=== PATIENT | male | born 1995 | race Two or more races ===

== ENCOUNTER 2016-12-12 06:19 | Inpatient (IN) | payer OTHER ==
[~2016-12-12] VITALS: Ht 185.4 cm; Wt 90.5 kg
[2016-12-12 09:45] VITALS: BP 126/79; PULSE 86; RESP 18; Ht 185.4 cm; Wt 90.5 kg
[2016-12-12] MEDS ORDERED: D5W-0.45 NACL + KCL 20 MEQ 1,000 ML IV SCH (12:05)
[2016-12-12] MEDS ORDERED: morphine 2 MG INJ IV PRN (12:30)
[2016-12-12] MEDS ORDERED: ONDANSETRON 4 MG INJ IV PRN (12:30)
[2016-12-12] MEDS ORDERED: PANTOPRAZOLE 40 MG INJ IV SCH (13:00)
--- NOTE | 2016-12-12 14:41 | HP ---
DATE OF ADMISSION: 12/12/2016 CHIEF COMPLAINT: Abdominal pain. HISTORY OF PRESENT ILLNESS: The patient is a 21-year-old male who denies having any past medical hi story. The patient presented for evaluation of right lower quadrant pain. Patient stated that it h as been intermittent mostly in the right lower quadrant. The patient stated that he has pain over t he last couple of months and it got worse in the last couple of days and was more constant. The pat ient denies any nausea, vomiting, diarrhea. Denies fevers, chills. The patient was seen in [facility] Emergency Room and underwent a CT of abdomen and pelvis which reveal morphology of the distal ap pendix was suspicious for developing early focal distal appendicitis, no diverticulitis or mechanica l small-bowel obstruction. The patient was transferred to [facility] for insuranc e reasons. PAST MEDICAL HISTORY: Negative for any acute conditions. PAST SURGICAL HISTORY: Patient denies having any surgeries in the past. FAMILY HISTORY: Noncontributory. SOCIAL HISTORY: Patient lives with his family. The patient is originally from [place]. Speaks Poyntelle c and some Yoruba. The patient denies any tobacco use, denies any alcohol use, denies any illicit drug use. ALLERGIES: The patient stated that he had some ALLERGY TO MEDICATION, however, does not remember th e exact name of medication. HOME MEDICATIONS: No active scripts noted. REVIEW OF SYSTEMS: A 12-point review of systems negative unless mentioned in the HPI. PHYSICAL ASSESSMENT: GENERAL: Well-developed, well-nourished male in no acute distress. VITAL SIGNS: Temperature is 98.1, pulse is 94, blood pressure 123/73, respiratory rate 18, oxygen s aturation 100% on room air. HEENT: Head is atraumatic, normocephalic. Pupils equal, round, reactive to light and accommodation . Oral mucosa is pink and moist. NECK: Supple, no cervical lymphadenopathy, no thyromegaly. CHEST: Clear bilaterally. There is no rhonchi, wheezes, rales noted. CARDIOVASCULAR: Normal S1, S2. No murmurs, clicks, rubs noted. ABDOMEN: Round, soft, nondistended. Right lower quadrant tenderness. Bowel sounds present. There is no guarding, no rebound tenderness. EXTREMITIES: No edema, clubbing, cyanosis. Pulses equal bilaterally 2+. SKIN: There is no rash, petechiae noted. NEUROLOGIC: Patient is awake, alert and oriented x4. No focal deficits noted. Motor strength 5/5 in all extremities. LABORATORY DATA: On admission, CBC: White blood cells 10.6, hemoglobin 16.8, hematocrit 48.3, plat elets 199. Urinalysis is negative for leukocyte esterase, negative for nitrites. BMP: Sodium is 1 41, potassium 4.0, chloride 100, carbon dioxide 27, BUN is 13, creatinine 0.9, AST 17, ALT 19, alkal ine phosphatase 73, lipase is 21. Amylase is 131. ASSESSMENT AND PLAN: 1. Acute appendicitis. Patient is n.p.o. start IV fluids and antibiotics. I will ask Dr. Keith to see patient in general surgery consultation. 2. Protonix for peptic ulcer disease prophylaxis and sequential compression device for deep venous thrombosis prophylaxis. 3. Continue morphine p.r.n. for pain and Zofran p.r.n. for nausea. Further recommendations based on clinical course. Plan of care discussed with Dr. Vick. Dictated By: GILBERTO VELASQUEZ TECHNICAL TRANSLATOR for EDEL VICK MD SR/NTS Conf#: [id number] DID#: [id number]
[2016-12-12 20:20] VITALS: BP 111/59; RESP 16
[2016-12-12 21:41] LABS: ADD UMIC YES; URINE BILIRUBIN (Dip) NEGATIVE (NEGATIVE); URINE BLOOD (Dip) 2+ (NEGATIVE); URINE COLOR LT. YELLOW (YELLOW); URINE GLUCOSE (Dip) NEGATIVE (NEGATIVE); URINE KETONES (Dip) NEGATIVE (NEGATIVE); URINE LEUKOCYTE ESTERASE (Dip) NEGATIVE (NEGATIVE); URINE NITRITE (Dip) NEGATIVE (NEGATIVE); URINE TOTAL PROTEIN (Dip) NEGATIVE (NEGATIVE); URINE UROBILINOGEN (Dip) 0.2 E.U./dL (0.1-1.0)
[2016-12-12 21:50] LABS: SQUAMOUS EPITHELIAL CELL,UR RARE
--- NOTE | 2016-12-12 23:05 | CONS ---
DATE OF ADMISSION: 12/12/2016 DATE OF CONSULTATION: 12/12/2016 TYPE OF CONSULTATION: Surgical. REQUESTING PHYSICIAN: Dr. Wilhelm's service from Dr. Keith and I am covering Dr. Keith. HISTORY OF PRESENT ILLNESS: This is a 21-year-old gentleman who was transferred from [facility] because of the insurance reasons after he referred to the emergency room complaining of right lower quadrant abdominal pain on and off for about 2 to 3 months. They evaluated him over there. T he CBC was normal. They got suspicious for appendicitis. They got a CT scan of the abdomen and pel vis and the report of CT scans is limited by motion. Morphology of the distal appendix suspicious f or developing, early focal distal appendicitis. No diverticulitis or mechanical small-bowel obstruc tion seen. In any case, the patient was transferred here. PAST MEDICAL HISTORY: Negative for any acute conditions or any surgeries. FAMILY HISTORY: Noncontributory. SOCIAL HISTORY: The patient lives with his family. The patient originally from [place]. 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 Denies alcohol or illicit drug abuse. ALLERGIES: THE PATIENT THINKS HE IS ALLERGIC TO SOME KIND OF MEDICATION, BUT HE DOES NOT KNOW THE N ARNALDO. REVIEW OF SYSTEMS: Unremarkable. PHYSICAL EXAMINATION: GENERAL: The patient is alert, awake, oriented x3, lying down in the bed in no acute distress. VITAL SIGNS: Today afternoon, temperature 98.2, heart rate 86 and regular, respirations 18, blood p ressure 126/79, saturation 99% on room air. LABORATORY DATA: No lab result was done here, but as was mentioned transferred from [facility] WBC was 10,800 with neutrophils 56%. Important is that the urinalysis has some abnormality, no nitrates or ketones or anything else, except that red blood cell is 25 to 50 per high power field. HEAD AND NECK: Within normal limits. CHEST: Symmetrical expansion of hemithoraces. LUNGS: Clear to auscultation. HEART: Regular rhythm. No murmur. ABDOMEN: Not distended. Bowel sounds normal. Abdomen is soft. There is no actual tenderness, may be question plus/minus on deep palpation, maybe slightly tender below the umbilicus to the right saniya e. There is no evidence of inguinal or femoral hernia. EXTREMITIES: Lower extremity negative. LABORATORY DATA: As was mentioned, labs on admission from the other hospital WBC 10,600; hemoglobin 16.8, hematocrit 48.3, platelets 199. Sodium 141, potassium 4, chloride 100, carbon dioxide 27, BU N 13, creatinine 0.9. AST, ALT, alkaline phosphatase within normal limits. Urinalysis: No leukocy tosis, negative for leukocyte esterase, negative nitrites, negative WBC, but positive for RBCs 25 to 50. I reviewed the copy of the CT scan on the CD with Dr. Narayan Cruz, our radiologist, and he did not believe that there is ____ appendicitis. IMPRESSION: 1. Microscopic hematuria. 2. On and off episodes of right lower quadrant abdominal pain for a short time during the past coup le of months, question of possible ureteral or kidney stone. 3. At this time, per absence of leukocytosis, absence of fever, patient has a good appetite and neg ative CT scan of the abdomen per our radiologist, Dr. Narayan Cruz. Therefore, the patient does not have acute appendicitis. PLAN: I am going to ask Dr. Riley, the urologist, to evaluate the patient for the hematuria. Th at could explain the problem of right lower quadrant abdominal pain that the patient has been experi encing in the past. We will continue following the patient. Dictated By: VICKY ESPINAL MD PS/NTS Conf#: [id number] DID#: [id number] CC: EDEL WILHELM MD; HEATHER ORONA MD;*EndCC*
--- NOTE | 2016-12-13 01:27 | CONS ---
DATE OF ADMISSION: 12/12/2016 DATE OF CONSULTATION: 12/12/2016 REQUESTING PHYSICIAN: Dr. Vick HISTORY OF PRESENT ILLNESS: The patient is a 21-year-old [place] male who presented to the emergen cy room at [facility]. In fact, he took his father over there because his father was havin g infection in his jaw, and while he was there, he did request to be seen himself as well because he has been having pain in the right lower quadrant on and off for the past couple of months. The pat ient described the pain as sometimes like pulsating and no associated nausea or vomiting, no urinary symptoms. No urgency, frequency and no dysuria. The patient describes the pain about 2/10 to 3/10 . The pain did not require any medications as he describes it, and he does not feel any pain once h e is asleep. Only he feels it during the day, and it lasts about sometime up to 2 minutes and then goes away. There is no similar pain in the past. The patient denies any prior medical or surgical problems. He is circumcised at . FAMILY HISTORY: His father has had kidney stones. The patient while at [facility] underwent a CT scan, and that was interpreted as maybe he has append icitis, and because his insurance is capitated to [facility], he was transferred t [facility] for further care. At [facility], the patient was seen by Dr. Carmona, and it looks like he reviewed the x-rays with the radiologist, and there is no indication for appen dicitis as he states. Because the patient was found microscopic hematuria, also a urological consul tation was requested. SOCIAL HISTORY: The patient lives with his family. He does not smoke, does not drink any alcohol, and there is no history of drug abuse. PHYSICAL EXAMINATION: GENERAL: A 21-year-old male who is in no acute distress at the present. VITAL SIGNS: His temperature is 98.2, pulse is 86, respirations 18, blood pressure 126/79. HEAD AND NECK: Unremarkable. BACK: There is no flank tenderness. ABDOMEN: Soft. No abdominal mass palpable and no tenderness. EXTERNAL GENITALIA: He is circumcised at , and both testes are in the scrotum, are normal. LOWER EXTREMITIES: Normal. IMPRESSION: Microscopic hematuria with right lower quadrant pain, family history of kidney stones. The patient may have passed a small kidney stone, and at the present there is no evidence of acute urinary problem, and since the general surgeon ruled out possibility of appendicitis, therefore the patient could go home and could be discharged, and he should follow up with his primary care doctor, repeat the urinalysis in about a week or 2 weeks, and then if he is still having hematuria, one cou ld pursue that further with more workup. I do thank you for allowing me to help in his care. Dictated By: SHINE FAIRCHILD/LANETTE Conf#: [id number] DID#: [id number]
--- NOTE | 2016-12-15 06:26 | DS ---
DATE OF ADMISSION: 12/12/2016 DATE OF DISCHARGE: 12/12/2016 DISCHARGE DIAGNOSES: Diagnoses before the patient left against medical advice on 12/12/2016: 1. Possible acute appendicitis. 2. Microscopic hematuria with right lower quadrant pain, with a history of kidney stones. For history, please refer to the history and physical from 12/12/2016. HOSPITAL COURSE: The patient is a 21-year-old male who presented to [facility] for evaluat ion of right lower quadrant pain. The patient underwent a CT scan of the abdomen and pelvis and was diagnosed with an acute appendicitis and the patient was transferred to [facility] due to insurance reasons. HOSPITAL COURSE: The patient was undergoing evaluation by Dr. Carmona in general surgery consultatio n and surgical impression was that the patient does not have acute appendicitis on CT, which have be en reviewed with the radiologist, Dr. Narayan Cruz; however, the patient was found to have microscopic hematuria and a urology consultation was requested. The patient was evaluated by Dr. Riley in ur ology consultation. The patient's abdominal pain was resolved at that time. The patient was given Protonix b.i.d. The patient may have passed a small kidney stone and at that time there was no evid ence of an acute urinary problem. The patient left against medical advice on 12/12/2016 at 9:41 p.m . Dictated By: GILBERTO VELASQUEZ WATER QUALITY ASSISTANT for EDEL WILHELM MD SR/NTS Conf#: [id number] DID#: [id number]
== END 2016-12-12 22:00 | disposition left against medical advice (07) | DRG 395 ==
LOC: MS1 09:19
PROVIDERS: ADMIT Internal Medicine; ATTEND Internal Medicine
DX: K35.80 Unspecified acute appendicitis (principal); R31.9 Hematuria, unspecified
CPT/HCPCS: 81001; 81003; 87040; C9113; J3480